=== PATIENT | male | born 1965 | race Caucasian/White ===

== ENCOUNTER → 2016-05-10 | Outpatient (CLI) | payer OTHER | LOC: MW.CHPS 10:46 | PROVIDERS: ATTEND Physician Assistant | DX: D22.9 Melanocytic nevi, unspecified (principal) | CPT/HCPCS: 88305 ==

== ENCOUNTER 2016-08-08 11:14 | Observation (INO) | payer OTHER ==
[2016-08-08] MEDS ORDERED: Nitroglycerin 0.4 MG Tab.SL SL PRN (11:17)
[2016-08-08] MEDS ORDERED: Sodium Chloride 0.9% 2.5 ML Syringe FLUSH PRN (11:17)
[2016-08-08] MEDS ORDERED: Aspirin 81 MG Tab.Chew PO ONE (11:17)
[2016-08-08] MEDS ORDERED: Sodium Chloride 0.9% 10 ML Syringe FLUSH PRN (11:17)
--- NOTE | 2016-08-08 11:19 | EDM.PDOC ---
ED HPI GENERAL MEDICAL PROBLEM - General Chief Complaint: Chest Pain Stated Complaint: CHEST PAIN Time Seen by Provider: 08/08/16 11:16 - History of Present Illness INITIAL COMMENTS - FREE TEXT/NARRATIVE: HISTORY AND PHYSICAL: History of present illness: Patient 50-year-old white male she is concerned substernal chest pain he describes as an elephant sitting on his chest with associated shortness of breath at the approximate half hour prior to arrival he is lying in bed he does smoke he does not report hypercholesteremia or diabetes he denies prior CVA or SC Review of systems: As per history of present illness and below otherwise all systems reviewed and negative. Past medical history: As per history of present illness and as reviewed below otherwise noncontributory. Surgical history: As per history of present illness and as reviewed below otherwise noncontributory. Social history: No reported history of drug or alcohol abuse. Family history: As per history of present illness and as reviewed below otherwise noncontributory. Physical exam: HEENT: Atraumatic, normocephalic, pupils reactive, negative for conjunctival pallor or scleral icterus, mucous membranes moist, throat clear, neck supple, nontender, trachea midline. Lungs: Clear to auscultation, breath sounds equal bilaterally, chest nontender. Heart: S1S2, regular, negative for clicks, rubs, or JVD. Abdomen: Soft, nondistended, nontender. Negative for masses or hepatosplenomegaly. Negative for costovertebral tenderness. Pelvis: Stable nontender. Genitourinary: Deferred. Rectal: Deferred. Extremities: Atraumatic, negative for cords or calf pain. Neurovascular unremarkable. Neuro: Awake, alert, oriented. Cranial nerves II through XII unremarkable. Cerebellum unremarkable. Motor and sensory unremarkable throughout. Exam nonfocal. Diagnostics: CBC CMP troponin PT/INR chest x-ray EKG Therapeutics: IV O2 monitor aspirin 324 mg by mouth sublingual nitroglycerin Impression: #1 chest pain Definitive disposition and diagnosis as appropriate pending reevaluation and review of above. - Related Data Allergies Allergy/AdvReac Type Severity Reaction Status Date / Time No Known Allergies Allergy Verified 08/08/16 11:18 Home Meds: Home Meds . [No Known Home Meds] 09/21/13 [History] Social & Family History - Tobacco Use Smoking Status *Q: Current Every Day Smoker Years of Tobacco use: 30 - Alcohol Use Days Per Week of Alcohol Use: 1 Number of Drinks Per Day: 2 Total Drinks Per Week: 2 - Recreational Drug Use Recreational Drug Use: No Drug Use in Last 12 Months: No ED ROS GENERAL - Review of Systems Review Of Systems: ROS reveals no pertinent complaints other than HPI. ED EXAM, GENERAL - Physical Exam Exam: See Below (See dictation) Course - Vital Signs Last Recorded V/S: Last Vital Signs Temp 36.6 C 08/08/16 11:18 Pulse 63 08/08/16 11:39 Resp 16 08/08/16 11:39 BP 115/67 08/08/16 11:39 Pulse Ox 95 08/08/16 11:39 - Orders/Labs/Meds Orders: Active Orders 24 hr Category Date Time Status Cardiac Monitoring [RC] . DIRECTED Care 08/08/16 11:16 Active EKG Documentation Completion [RC] STAT Care 08/08/16 11:16 Active Oxygen Therapy, ED [RC] ASDIRECTED Care 08/08/16 11:16 Active Pulse Oximetry [RC] ASDIRECTED Care 08/08/16 11:16 Active Sodium Chloride 0.9% [Normal Saline] 1,000 ml Med 08/08/16 11:30 Active IV STAT Sodium Chloride 0.9% [Saline Flush] Med 08/08/16 11:17 Active 10 ml FLUSH ASDIRECTED PRN Sodium Chloride 0.9% [Saline Flush] Med 08/08/16 11:17 Active 2.5 ml FLUSH ASDIRECTED PRN Saline Lock Insert [OM.PC] Stat Oth 08/08/16 11:16 Ordered Medication Orders Sodium Chloride (Normal Saline) 1,000 mls @ 125 mls/hr IV STAT LIDIA Last Admin: 08/08/16 11:24 Dose: 125 mls/hr Sodium Chloride (Saline Flush) 10 ml FLUSH ASDIRECTED PRN PRN Reason: Keep Vein Open Sodium Chloride (Saline Flush) 2.5 ml FLUSH ASDIRECTED PRN PRN Reason: Keep Vein Open Labs: Laboratory Tests 08/08/16 08/08/16 08/08/16 Range/Units 11:19 11:19 11:19 WBC 12.82 H (4.0-11.0) K/uL RBC 5.54 (4.50-5.90) M/uL Hgb 17.4 H (13.0-17.0) g/dL Hct 50.1 H (38.0-50.0) % MCV 90.4 (80.0-98.0) fL MCH 31.4 (27.0-32.0) pg MCHC 34.7 (31.0-37.0) g/dL RDW Std Deviation 46.8 (28.0-62.0) fl RDW Coeff of Trent 14 (11.0-15.0) % Plt Count 281 (150-400) K/uL MPV 10.40 (7.40-12.00) fL Neut % (Auto) 64.2 (48.0-80.0) % Lymph % (Auto) 29.2 (16.0-40.0) % Mccone % (Auto) 6.2 (0.0-15.0) % Eos % (Auto) 0.2 (0.0-7.0) % Baso % (Auto) 0.2 (0.0-1.5) % Neut # (Auto) 8.2 H (1.4-5.7) K/uL Lymph # (Auto) 3.7 H (0.6-2.4) K/uL Mccone # (Auto) 0.8 (0.0-0.8) K/uL Eos # (Auto) 0.0 (0.0-0.7) K/uL Baso # (Auto) 0.0 (0.0-0.1) K/uL Nucleated RBC % 0.0 /100WBC Nucleated RBCs # 0 K/uL INR (0.86-1.11) Sodium 139 (136-146) mmol/L Potassium 3.9 (3.5-5.1) mmol/L Chloride 105 (98-110) mmol/L Carbon Dioxide 21 (21-31) mmol/L BUN 15 (6.0-23.0) mg/dL Creatinine 1.0 (0.6-1.5) mg/dL Est Cr Clr Drug Dosing 96.98 mL/min Estimated GFR (MDRD) > 60.0 ml/min Glucose 102 (60-110) mg/dL Calcium 9.1 (8.8-10.8) mg/dL Total Bilirubin 0.7 (0.1-1.5) mg/dL AST 61 H (5-40) IU/L ALT 36 (8-54) IU/L Alkaline Phosphatase 90 (40-150) Troponin I (0.0-0.29) NG/ML B-Natriuretic Peptide < 15 (<100) PG/ML Total Protein 7.9 (6.0-8.0) g/dL Albumin 4.6 (3.5-5.0) g/dL Globulin 3.3 (2.0-3.5) g/dL Albumin/Globulin Ratio 1.4 (1.3-2.8) Urine Opiates Screen (NEGATIVE) Ur Oxycodone Screen (NEGATIVE) Urine Methadone Screen (NEGATIVE) Ur Barbiturates Screen (NEGATIVE) Ur Phencyclidine Scrn (NEGATIVE) Ur Amphetamine Screen (NEGATIVE) U Methamphetamines Scrn (NEGATIVE) U Benzodiazepines Scrn (NEGATIVE) U Cocaine Metab Screen (NEGATIVE) U Marijuana (THC) Screen (NEGATIVE) 08/08/16 08/08/16 08/08/16 Range/Units 11:19 11:19 12:34 WBC (4.0-11.0) K/uL RBC (4.50-5.90) M/uL Hgb (13.0-17.0) g/dL Hct (38.0-50.0) % MCV (80.0-98.0) fL MCH (27.0-32.0) pg MCHC (31.0-37.0) g/dL RDW Std Deviation (28.0-62.0) fl RDW Coeff of Trent (11.0-15.0) % Plt Count (150-400) K/uL MPV (7.40-12.00) fL Neut % (Auto) (48.0-80.0) % Lymph % (Auto) (16.0-40.0) % Mccone % (Auto) (0.0-15.0) % Eos % (Auto) (0.0-7.0) % Baso % (Auto) (0.0-1.5) % Neut # (Auto) (1.4-5.7) K/uL Lymph # (Auto) (0.6-2.4) K/uL M[place]one # (Auto) (0.0-0.8) K/uL Eos # (Auto) (0.0-0.7) K/uL Baso # (Auto) (0.0-0.1) K/uL Nucleated RBC % /100WBC Nucleated RBCs # K/uL INR 0.96 (0.86-1.11) Sodium (136-146) mmol/L Potassium (3.5-5.1) mmol/L Chloride (98-110) mmol/L Carbon Dioxide (21-31) mmol/L BUN (6.0-23.0) mg/dL Creatinine (0.6-1.5) mg/dL Est Cr Clr Drug Dosing mL/min Estimated GFR (MDRD) ml/min Glucose (60-110) mg/dL Calcium (8.8-10.8) mg/dL Total Bilirubin (0.1-1.5) mg/dL AST (5-40) IU/L ALT (8-54) IU/L Alkaline Phosphatase (40-150) Troponin I < 0.10 (0.0-0.29) NG/ML B-Natriuretic Peptide (<100) PG/ML Total Protein (6.0-8.0) g/dL Albumin (3.5-5.0) g/dL Globulin (2.0-3.5) g/dL Albumin/Globulin Ratio (1.3-2.8) Urine Opiates Screen POSITIVE (NEGATIVE) Ur Oxycodone Screen NEGATIVE (NEGATIVE) Urine Methadone Screen NEGATIVE (NEGATIVE) Ur Barbiturates Screen NEGATIVE (NEGATIVE) Ur Phencyclidine Scrn NEGATIVE (NEGATIVE) Ur Amphetamine Screen NEGATIVE (NEGATIVE) U Methamphetamines Scrn NEGATIVE (NEGATIVE) U Benzodiazepines Scrn NEGATIVE (NEGATIVE) U Cocaine Metab Screen NEGATIVE (NEGATIVE) U Marijuana (THC) Screen NEGATIVE (NEGATIVE) Meds: Medications Generic Name Dose Route Start Last Admin Trade Name Freq PRN Reason Stop Dose Admin Sodium Chloride 1,000 mls @ 125 mls/hr 08/08/16 11:30 08/08/16 11:24 Normal Saline IV 125 mls/hr STAT LIDIA Administration Sodium Chloride 10 ml 08/08/16 11:17 Saline Flush FLUSH ASDIRECTED PRN Keep Vein Open Sodium Chloride 2.5 ml 08/08/16 11:17 Saline Flush FLUSH ASDIRECTED PRN Keep Vein Open Discontinued Medications Generic Name Dose Route Start Last Admin Trade Name Freq PRN Reason Stop Dose Admin Aspirin 324 mg 08/08/16 11:17 08/08/16 11:23 Aspirin PO 08/08/16 11:18 324 mg ONETIME ONE Administration Aspirin Confirm 08/08/16 11:31 08/08/16 11:36 Aspirin Administered 08/08/16 11:32 Not Given Dose 81 mg .ROUTE .STK-MED ONE Nitroglycerin 0.4 mg 08/08/16 11:17 08/08/16 11:24 Nitrostat SL 08/08/16 11:28 0.4 mg Q5M PRN Administration Chest Pain Nitroglycerin 1 gm 08/08/16 13:19 Nitro-Bid 2% TOP 08/08/16 13:20 ONETIME ONE Departure - Departure Time of Disposition: 13:21 Disposition: Refer to Observation Condition: good Clinical Impression: Chest pain - Discharge Information Forms: ED Department Discharge - My Orders Last 24 Hours: My Active Orders 08/08/16 11:16 Cardiac Monitoring [RC] . DIRECTED EKG Documentation Completion [RC] STAT Oxygen Therapy, ED [RC] ASDIRECTED Pulse Oximetry [RC] ASDIRECTED Saline Lock Insert [OM.PC] Stat 08/08/16 11:17 Sodium Chloride 0.9% [Saline Flush] 10 ml FLUSH ASDIRECTED PRN Sodium Chloride 0.9% [Saline Flush] 2.5 ml FLUSH ASDIRECTED PRN 08/08/16 11:30 Sodium Chloride 0.9% [Normal Saline] 1,000 ml IV STAT - Assessment/Plan Last 24 Hours: My Active Orders 08/08/16 11:16 Cardiac Monitoring [RC] . DIRECTED EKG Documentation Completion [RC] STAT Oxygen Therapy, ED [RC] ASDIRECTED Pulse Oximetry [RC] ASDIRECTED Saline Lock Insert [OM.PC] Stat 08/08/16 11:17 Sodium Chloride 0.9% [Saline Flush] 10 ml FLUSH ASDIRECTED PRN Sodium Chloride 0.9% [Saline Flush] 2.5 ml FLUSH ASDIRECTED PRN 08/08/16 11:30 Sodium Chloride 0.9% [Normal Saline] 1,000 ml IV STAT
[2016-08-08] MEDS ORDERED: Sodium Chloride 0.9% 1,000 ML IV SCH (11:30)
[2016-08-08] MEDS ORDERED: Aspirin 81 MG Tab.Chew ONE (11:31)
[2016-08-08 11:50] LABS: CHLORIDE,CL 105 mmol/L (98-110); SODIUM,NA 139 mmol/L (136-146)
--- NOTE | 2016-08-08 11:51 | CR ---
EXAMINATION: Portable chest radiograph. HISTORY: Shortness of breath. FINDINGS: The trachea is midline. The cardiomediastinal silhouette is within normal limits. No pulmonary infil trates, effusions or pneumothorax. Osseous structures appear unremarkable. IMPRESSION: No acute cardiopulmonary process.
[2016-08-08] MEDS ORDERED: Nitroglycerin 2% Oint 1 GM UD Packet TOP ONE (13:19)
[2016-08-08] MEDS ORDERED: Ondansetron 8 MG Tab.DIS PO PRN (14:03)
[2016-08-08] MEDS ORDERED: Temazepam 15 MG Cap PO PRN (14:03)
[2016-08-08] MEDS ORDERED: Acetaminophen 325 MG Tab PO PRN (14:03)
[2016-08-08] MEDS ORDERED: oxyCODONE 5 MG Tab PO PRN (14:03)
[2016-08-08] MEDS ORDERED: Docusate Sodium 100 MG Cap PO PRN (14:03)
--- NOTE | 2016-08-08 14:53 | PCM.HP ---
H&P History of Present Illness - General Date of Service: 08/08/16 Admit Problem/Dx: Admission Diagnosis/Problem Admission Diagnosis/Problem Chest pain atypical chest pain Source of Information: Patient, Family History Limitations: Reports: No Limitations - History of Present Illness Initial Comments - Free Text/Narative: August 08, 2016: The patient is a 50-year-old gentleman who is presented to the emergency department out of concern for substernal chest pain. Patient had described it as a crushing type weight like an elephant on his chest. Patient also had some shortness of breath with this. Patient says that he was not doing anything physical but the pain had started essentially without aggravation. Other than shortness of breath the patient had no specific associated symptoms. The patient says that the pain did not radiate. He is not in any pain at present time. The patient uses tobacco on a daily basis. The patient has stated that the pain has been relieved with the use of nitroglycerin patch. He also has denied any specific aggravating or relieving factors. Onset of Symptoms: Reports: Sudden Duration of Symptoms: Reports: Hour(s):, Improving Location: Reports: Chest, Upper Extremity, Left Quality: Reports: Pressure, Sharp, Stabbing Improves with: Reports: Medication Worsens with: Reports: None Associated Symptoms: Reports: Nausea/Vomiting chest pain Pain Score (Numeric/FACES): 5 - Related Data Allergies/Adverse Reactions: Allergies Allergy/AdvReac Type Severity Reaction Status Date / Time No Known Allergies Allergy Verified 08/08/16 11:18 Home Medications: Home Meds . [No Known Home Meds] 09/21/13 [History] Past Medical History HEENT History: Reports: None Cardiovascular History: Reports: None Respiratory History: Reports: None Gastrointestinal History: Reports: GERD Genitourinary History: Reports: None Musculoskeletal History: Reports: None Neurological History: Reports: None Psychiatric History: Reports: None Endocrine/Metabolic History: Reports: None Hematologic History: Reports: None Oncologic (Cancer) History: Reports: None Dermatologic History: Reports: None - Past Surgical History GI Surgical History: Reports: Cholecystectomy Musculoskeletal Surgical History: Reports: Other (See Below) Other Musculoskeletal Surgeries/Procedures:: hip surgery, knee surgery, rib fx Social & Family History - Family History Family Medical History: Noncontributory - Tobacco Use Smoking Status *Q: Current Every Day Smoker Years of Tobacco use: 30 Packs/Tins Daily: 1 - Alcohol Use Alcohol Use History: Yes Days Per Week of Alcohol Use: 7 Number of Drinks Per Day: 2 Total Drinks Per Week: 14 Alcohol Use Frequency: Daily - Recreational Drug Use Recreational Drug Use: No Drug Use in Last 12 Months: No H&P Review of Systems - Review of Systems: Review Of Systems: See Below General: Reports: Weakness HEENT: Reports: No Symptoms Pulmonary: Reports: Shortness of Breath Cardiovascular: Reports: Chest Pain, Dyspnea on Exertion Gastrointestinal: Reports: No Symptoms Genitourinary: Reports: No Symptoms Musculoskeletal: Reports: No Symptoms Skin: Reports: No Symptoms Psychiatric: Reports: No Symptoms Neurological: Reports: No Symptoms Hematologic/Lymphatic: Reports: No Symptoms Immunologic: Reports: No Symptoms Exam - Exam Exam: See Below - Vital Signs Vital Signs: Last Vital Signs Temp 36.6 C 08/08/16 11:18 Pulse 55 L 08/08/16 14:08 Resp 18 08/08/16 14:08 BP 134/97 H 08/08/16 14:08 Pulse Ox 98 08/08/16 14:08 Weight: 75.9 kg - Exam Quality Assessment: Supplemental Oxygen General: Alert, Oriented, Cooperative. No: Mild Distress HEENT: Conjunctiva Clear, EACs Clear, EOMI, Hearing Intact, Mucosa Moist & [place] , Nares Patent Neck: Supple, Trachea Midline, 2 Lungs: Clear to Auscultation, Normal Respiratory Effort Cardiovascular: Regular Rate, Regular Rhythm Abdomen: Normal Bowel Sounds, Soft. No: Peritoneal Signs, Distention Back Exam: Normal Inspection Extremities: Normal Inspection Skin: Warm, Dry, Intact Neurological: Cranial Nerves Intact Neuro Extensive - Mental Status: Alert, Oriented x3 Psychiatric: Alert, Normal Affect, Normal Mood - Patient Data Lab Results last 24 hrs: Laboratory Results - last 24 hr 08/08/16 08/08/16 08/08/16 Range/Units 11:19 11:19 11:19 WBC 12.82 H (4.0-11.0) K/uL RBC 5.54 (4.50-5.90) M/uL Hgb 17.4 H (13.0-17.0) g/dL Hct 50.1 H (38.0-50.0) % MCV 90.4 (80.0-98.0) fL MCH 31.4 (27.0-32.0) pg MCHC 34.7 (31.0-37.0) g/dL RDW Std Deviation 46.8 (28.0-62.0) fl RDW Coeff of Trent 14 (11.0-15.0) % Plt Count 281 (150-400) K/uL MPV 10.40 (7.40-12.00) fL Neut % (Auto) 64.2 (48.0-80.0) % Lymph % (Auto) 29.2 (16.0-40.0) % [place]ay % (Auto) 6.2 (0.0-15.0) % Eos % (Auto) 0.2 (0.0-7.0) % Baso % (Auto) 0.2 (0.0-1.5) % Neut # (Auto) 8.2 H (1.4-5.7) K/uL Lymph # (Auto) 3.7 H (0.6-2.4) K/uL [place]ay # (Auto) 0.8 (0.0-0.8) K/uL Eos # (Auto) 0.0 (0.0-0.7) K/uL Baso # (Auto) 0.0 (0.0-0.1) K/uL Nucleated RBC % 0.0 /100WBC Nucleated RBCs # 0 K/uL INR (0.86-1.11) Sodium 139 (136-146) mmol/L Potassium 3.9 (3.5-5.1) mmol/L Chloride 105 (98-110) mmol/L Carbon Dioxide 21 (21-31) mmol/L BUN 15 (6.0-23.0) mg/dL Creatinine 1.0 (0.6-1.5) mg/dL Est Cr Clr Drug Dosing 96.98 mL/min Estimated GFR (MDRD) > 60.0 ml/min Glucose 102 (60-110) mg/dL Calcium 9.1 (8.8-10.8) mg/dL Total Bilirubin 0.7 (0.1-1.5) mg/dL AST 61 H (5-40) IU/L ALT 36 (8-54) IU/L Alkaline Phosphatase 90 (40-150) Troponin I (0.0-0.29) NG/ML B-Natriuretic Peptide < 15 (<100) PG/ML Total Protein 7.9 (6.0-8.0) g/dL Albumin 4.6 (3.5-5.0) g/dL Globulin 3.3 (2.0-3.5) g/dL Albumin/Globulin Ratio 1.4 (1.3-2.8) Urine Opiates Screen (NEGATIVE) Ur Oxycodone Screen (NEGATIVE) Urine Methadone Screen (NEGATIVE) Ur Barbiturates Screen (NEGATIVE) Ur Phencyclidine Scrn (NEGATIVE) Ur Amphetamine Screen (NEGATIVE) U Methamphetamines Scrn (NEGATIVE) U Benzodiazepines Scrn (NEGATIVE) U Cocaine Metab Screen (NEGATIVE) U Marijuana (THC) Screen (NEGATIVE) 08/08/16 08/08/16 08/08/16 Range/Units 11:19 11:19 12:34 WBC (4.0-11.0) K/uL RBC (4.50-5.90) M/uL Hgb (13.0-17.0) g/dL Hct (38.0-50.0) % MCV (80.0-98.0) fL MCH (27.0-32.0) pg MCHC (31.0-37.0) g/dL RDW Std Deviation (28.0-62.0) fl RDW Coeff of Trent (11.0-15.0) % Plt Count (150-400) K/uL MPV (7.40-12.00) fL Neut % (Auto) (48.0-80.0) % Lymph % (Auto) (16.0-40.0) % Quay % (Auto) (0.0-15.0) % Eos % (Auto) (0.0-7.0) % Baso % (Auto) (0.0-1.5) % Neut # (Auto) (1.4-5.7) K/uL Lymph # (Auto) (0.6-2.4) K/uL Quay # (Auto) (0.0-0.8) K/uL Eos # (Auto) (0.0-0.7) K/uL Baso # (Auto) (0.0-0.1) K/uL Nucleated RBC % /100WBC Nucleated RBCs # K/uL INR 0.96 (0.86-1.11) Sodium (136-146) mmol/L Potassium (3.5-5.1) mmol/L Chloride (98-110) mmol/L Carbon Dioxide (21-31) mmol/L BUN (6.0-23.0) mg/dL Creatinine (0.6-1.5) mg/dL Est Cr Clr Drug Dosing mL/min Estimated GFR (MDRD) ml/min Glucose (60-110) mg/dL Calcium (8.8-10.8) mg/dL Total Bilirubin (0.1-1.5) mg/dL AST (5-40) IU/L ALT (8-54) IU/L Alkaline Phosphatase (40-150) Troponin I < 0.10 (0.0-0.29) NG/ML B-Natriuretic Peptide (<100) PG/ML Total Protein (6.0-8.0) g/dL Albumin (3.5-5.0) g/dL Globulin (2.0-3.5) g/dL Albumin/Globulin Ratio (1.3-2.8) Urine Opiates Screen POSITIVE (NEGATIVE) Ur Oxycodone Screen NEGATIVE (NEGATIVE) Urine Methadone Screen NEGATIVE (NEGATIVE) Ur Barbiturates Screen NEGATIVE (NEGATIVE) Ur Phencyclidine Scrn NEGATIVE (NEGATIVE) Ur Amphetamine Screen NEGATIVE (NEGATIVE) U Methamphetamines Scrn NEGATIVE (NEGATIVE) U Benzodiazepines Scrn NEGATIVE (NEGATIVE) U Cocaine Metab Screen NEGATIVE (NEGATIVE) U Marijuana (THC) Screen NEGATIVE (NEGATIVE) Result Diagrams: 08/09/16 09:13 08/09/16 09:13 *Q Meaningful Use (ADM) - VTE *Q VTE Criteria *Q: - Stroke *Q Stroke Criteria *Q: - AMI *Q AMI Criteria *Q: - Problem List (1) Chest pain SNOMED Code(s): 11031916 ICD Code: R07.9 - CHEST PAIN, UNSPECIFIED Status: Acute Qualifiers: Chest pain type: other chest pain Qualified Code(s): R07.89 - Other chest pain; R07.8 - Other chest pain Problem List Initiated/Reviewed/Updated: Yes Orders Last 24hrs: Active Orders 24 hr Category Date Time Status Patient Status [ADT] Routine ADT 08/08/16 14:03 Active Ambulate [RC] PER UNIT ROUTINE Care 08/08/16 14:04 Active Cardiac Monitoring [RC] . DIRECTED Care 08/08/16 11:16 Active EKG Documentation Completion [RC] AM Care 08/09/16 08:00 Active EKG Documentation Completion [RC] STAT Care 08/08/16 11:16 Active Oxygen Therapy [RC] PRN Care 08/08/16 14:03 Active Oxygen Therapy, ED [RC] ASDIRECTED Care 08/08/16 11:16 Active Pulse Oximetry [RC] ASDIRECTED Care 08/08/16 11:16 Active Up ad Ayanna [RC] ASDIRECTED Care 08/08/16 14:03 Active VTE/DVT Education [RC] PER UNIT ROUTINE Care 08/08/16 14:03 Active Vital Signs [RC] Q4H Care 08/08/16 14:03 Active 2 Gram Sodium Diet [DIET] Diet 08/08/16 Dinner Active TROPONIN I [CHEM] Timed Lab 08/08/16 19:03 Ordered Acetaminophen [Tylenol] Med 08/08/16 14:03 Active 650 mg PO Q4H PRN Docusate Sodium [Colace] Med 08/08/16 14:03 Active 100 mg PO BID PRN Ondansetron [Zofran ODT] Med 08/08/16 14:03 Active 8 mg PO Q4H PRN Sodium Chloride 0.9% [Normal Saline] 1,000 ml Med 08/08/16 11:30 Active IV STAT Sodium Chloride 0.9% [Saline Flush] Med 08/08/16 11:17 Active 10 ml FLUSH ASDIRECTED PRN Sodium Chloride 0.9% [Saline Flush] Med 08/08/16 11:17 Active 2.5 ml FLUSH ASDIRECTED PRN Temazepam [Restoril] Med 08/08/16 14:03 Active 15 mg PO BEDTIME PRN oxyCODONE Med 08/08/16 14:03 Active 5 mg PO Q4H PRN Saline Lock Insert [OM.PC] Stat Oth 08/08/16 11:16 Ordered Resuscitation Status Routine Resus Stat 08/08/16 14:03 Ordered Medication Orders Acetaminophen (Tylenol) 650 mg PO Q4H PRN PRN Reason: Pain (Mild 1-3)/fever Docusate Sodium (Colace) 100 mg PO BID PRN PRN Reason: Constipation Sodium Chloride (Normal Saline) 1,000 mls @ 125 mls/hr IV STAT [facility] Admin: 08/08/16 11:24 Dose: 125 mls/hr Ondansetron HCl (Zofran Odt) 8 mg PO Q4H PRN PRN Reason: nausea, able to take PO Oxycodone HCl (Oxycodone) 5 mg PO Q4H PRN PRN Reason: Pain (moderate 4-6) Sodium Chloride (Saline Flush) 10 ml FLUSH ASDIRECTED PRN PRN Reason: Keep Vein Open Sodium Chloride (Saline Flush) 2.5 ml FLUSH ASDIRECTED PRN PRN Reason: Keep Vein Open Temazepam (Restoril) 15 mg PO BEDTIME PRN PRN Reason: Sleep Assessment/Plan Comment:: August 08, 2016: The patient is a 50-year-old gentleman who will be admitted for observation secondary to his chest pain. Troponins have been ordered. The patient also have EKG obtained and likely when he is stable he can be considered appropriate for discharge home. Because of the patient's description I would recommend that the patient followup with primary care physician for stress test as an outpatient. The patient will be kept on a heart healthy diet, IV fluids, nitro paste for chest pain, telemetry and repeated troponins and metabolic panel. The patient's overall treatment plan will be adjusted as conditions and information indicates.
[2016-08-08] MEDS ORDERED: Alum Hydrox/Mag Hydrox/Simeth 15 ML, Lidocaine 2% 5 ML PO ONE ×2 (19:19)
--- NOTE | 2016-08-09 09:38 | PCM.PN ---
- General Info Date of Service: 08/09/16 Admission Dx/Problem (Free Text): Admission Diagnosis/Problem Admission Diagnosis/Problem Chest pain atypical chest pain Subjective Update: Patient describes his pain as epigastric and in ruq radiating towards his back. Pain was continuous and lasted for 1 hour. He describes pain as if an elephant was sitting on his chest. Pain started while he was lying in bed in the morning. He drinks 3-6 beers daily. He smokes 1 ppd. Pain recurred once since admission and he was given nitro paste which resolved his pain. Patient also states that he has recently had a cough and had one episode of hemoptysis day before admission. He went to walk-in clinic and was told he had sinusitis for which he was prescribed augmentin and steroids but he has not taken either yet. Functional Status: Reports: pain controlled, tolerating diet, ambulating, urinating - Review of Systems General: Reports: No Symptoms HEENT: Reports: no symptoms Pulmonary: Reports: no symptoms Cardiovascular: Reports: Chest Pain. Denies: Palpitations, Dyspnea on Exertion , Edema, Lightheadedness Gastrointestinal: Reports: Abdominal pain, Other (epigastric/ruq pain). Denies : Decreased appetite, Diarrhea, Melena, Nausea, Vomiting Genitourinary: Reports: no symptoms Musculoskeletal: Reports: no symptoms Skin: Reports: no symptoms Neurological: Reports: No Symptoms Psychiatric: Reports: no symptoms - Patient Data Vitals - most recent: Last Vital Signs Temp 36.6 C 08/09/16 07:48 Pulse 57 L 08/09/16 07:48 Resp 20 08/09/16 07:48 BP 104/71 08/09/16 07:48 Pulse Ox 97 08/09/16 07:48 Weight - most recent: 76.566 kg I&O - last 24 hours: Intake & Output 08/08/16 08/09/16 08/09/16 22:59 06:59 14:59 Intake Total 120 300 Output Total 500 Balance -380 300 Lab Results last 24 hrs: Laboratory Results - last 24 hr 08/08/16 08/08/16 08/08/16 Range/Units 15:30 17:06 22:48 WBC (4.0-11.0) K/uL RBC (4.50-5.90) M/uL Hgb (13.0-17.0) g/dL Hct (38.0-50.0) % MCV (80.0-98.0) fL MCH (27.0-32.0) pg MCHC (31.0-37.0) g/dL RDW Std Deviation (28.0-62.0) fl RDW Coeff of Trent (11.0-15.0) % Plt Count (150-400) K/uL MPV (7.40-12.00) fL Neut % (Auto) (48.0-80.0) % Lymph % (Auto) (16.0-40.0) % [place] % (Auto) (0.0-15.0) % Eos % (Auto) (0.0-7.0) % Baso % (Auto) (0.0-1.5) % Neut # (Auto) (1.4-5.7) K/uL Lymph # (Auto) (0.6-2.4) K/uL [place] # (Auto) (0.0-0.8) K/uL Eos # (Auto) (0.0-0.7) K/uL Baso # (Auto) (0.0-0.1) K/uL Nucleated RBC % /100WBC Nucleated RBCs # K/uL Troponin I < 0.10 < 0.10 (0.0-0.29) NG/ML Urine Color YELLOW Urine Appearance CLEAR Urine pH 5.5 (5.0-8.0) Ur Specific [place] <= 1.005 (1.001-1.035) Urine Protein NEGATIVE (NEGATIVE) mg/dL Urine Glucose (UA) NEGATIVE (NEGATIVE) mg/dL Urine Ketones NEGATIVE (NEGATIVE) mg/dL Urine Occult Blood NEGATIVE (NEGATIVE) Urine Nitrite NEGATIVE (NEGATIVE) Urine Bilirubin NEGATIVE (NEGATIVE) Urine Urobilinogen 0.2 (<2.0) EU/dL Ur Leukocyte Esterase NEGATIVE (NEGATIVE) Urine RBC 0-1 (0-2/HPF) Urine WBC 0-1 (0-5/HPF) Ur Epithelial Cells RARE (NONE-FEW) Urine Bacteria RARE (NEGATIVE) 08/09/16 Range/Units 09:13 WBC 10.55 (4.0-11.0) K/uL RBC 5.02 (4.50-5.90) M/uL Hgb 15.6 (13.0-17.0) g/dL Hct 45.6 (38.0-50.0) % MCV 90.8 (80.0-98.0) fL MCH 31.1 (27.0-32.0) pg MCHC 34.2 (31.0-37.0) g/dL RDW Std Deviation 48.1 (28.0-62.0) fl RDW Coeff of [place] 14 (11.0-15.0) % Plt Count 217 (150-400) K/uL MPV 10.00 (7.40-12.00) fL Neut % (Auto) 70.6 (48.0-80.0) % Lymph % (Auto) 19.0 (16.0-40.0) % [place] % (Auto) 8.6 (0.0-15.0) % Eos % (Auto) 1.6 (0.0-7.0) % Baso % (Auto) 0.2 (0.0-1.5) % Neut # (Auto) 7.5 H (1.4-5.7) K/uL Lymph # (Auto) 2.0 (0.6-2.4) K/uL [place] # (Auto) 0.9 H (0.0-0.8) K/uL Eos # (Auto) 0.2 (0.0-0.7) K/uL Baso # (Auto) 0.0 (0.0-0.1) K/uL Nucleated RBC % 0.0 /100WBC Nucleated RBCs # 0 K/uL Troponin I (0.0-0.29) NG/ML Urine Color Urine Appearance Urine pH (5.0-8.0) Ur Specific [place] (1.001-1.035) Urine Protein (NEGATIVE) mg/dL Urine Glucose (UA) (NEGATIVE) mg/dL Urine Ketones (NEGATIVE) mg/dL Urine Occult Blood (NEGATIVE) Urine Nitrite (NEGATIVE) Urine Bilirubin (NEGATIVE) Urine Urobilinogen (<2.0) EU/dL Ur Leukocyte Esterase (NEGATIVE) Urine RBC (0-2/HPF) Urine WBC (0-5/HPF) Ur Epithelial Cells (NONE-FEW) Urine Bacteria (NEGATIVE) Med Orders - Current: Current Medications Acetaminophen (Tylenol) 650 mg PO Q4H PRN PRN Reason: Pain (Mild 1-3)/fever Docusate Sodium (Colace) 100 mg PO BID PRN PRN Reason: Constipation Ondansetron HCl (Zofran Odt) 8 mg PO Q4H PRN PRN Reason: nausea, able to take PO Oxycodone HCl (Oxycodone) 5 mg PO Q4H PRN PRN Reason: Pain (moderate 4-6) Sodium Chloride (Saline Flush) 10 ml FLUSH ASDIRECTED PRN PRN Reason: Keep Vein Open Sodium Chloride (Saline Flush) 2.5 ml FLUSH ASDIRECTED PRN PRN Reason: Keep Vein Open Temazepam (Restoril) 15 mg PO BEDTIME PRN PRN Reason: Sleep Discontinued Medications Aspirin (Aspirin) 324 mg PO ONETIME ONE Stop: 08/08/16 11:18 Last Admin: 08/08/16 11:23 Dose: 324 mg Aspirin (Aspirin) Confirm Administered Dose 81 mg .ROUTE .STK-MED ONE Stop: 08/08/16 11:32 Last Admin: 08/08/16 11:36 Dose: Not Given Al Hydroxide/Mg Hydroxide 15 (ml/ Lidocaine HCl 5 ml) 0 ml PO ONETIME ONE Stop: 08/08/16 19:20 Last Admin: 08/08/16 20:12 Dose: 1 each Sodium Chloride (Normal Saline) 1,000 mls @ 125 mls/hr IV STAT LIDIA Last Admin: 08/08/16 11:24 Dose: 125 mls/hr Nitroglycerin (Nitrostat) 0.4 mg SL Q5M PRN PRN Reason: Chest Pain Stop: 08/08/16 11:28 Last Admin: 08/08/16 11:24 Dose: 0.4 mg Nitroglycerin (Nitro-Bid 2%) 1 gm TOP ONETIME ONE Stop: 08/08/16 13:20 Last Admin: 08/08/16 13:23 Dose: 1 gm - Exam General: alert, oriented, no acute distress HEENT: Pupils equal, Pupils reactive, EOMI Neck: supple, no JVD Lungs: Clear to auscultation, Normal respiratory effort Cardiovascular: Regular Rate, Regular Rhythm Abdomen: CVA tenderness, other (RUQ tenderness, all other regions nontender) Extremities: no edema Skin: warm, dry, intact Neurological: no new focal deficit Psy/Mental Status: alert, normal affect, normal mood - Problem List Review Problem List Initiated/Reviewed/Updated: Yes - My Orders Last 24 Hours: My Active Orders 08/09/16 08:58 Abdomen wo Cont [CT] Routine 08/09/16 09:03 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 Chest Pain/Epigastric Pain -vitals stable, NSR on admission EKG, Troponin x3 negative, Telemetry NSR 60-80 , CXR on admission shows no acute changes -no history of HTN, hypercholesterolemia or DM -patient claims to have had normal stress test 1 year ago -patient admits to drinking 3-6 beers daily, smokes 1 ppd -Leukocytosis on admission, may be from recent sinusitis infection 2. Alcohol Use Disorder -patient drinks 3-6 beers daily -no symptoms of withdrawal 3. Acute Sinusitis -patient has had ongoing cough for 2 weeks -diagnosed 2 days ago at walk-in clinic -patient was prescribed augmentin and steroids but he has not started either yet Plan: 1. DC telemety 2. order CBC/CMP/Amylase/Lipase/CRP 3. CT abdomen-pelvis wo contrast 4. consider DC home if no abnormalities 5. as per orders
[2016-08-09 09:49] LABS: CHLORIDE,CL 107 mmol/L (98-110); SODIUM,NA 140 mmol/L (136-146)
--- NOTE | 2016-08-09 11:15 | CT ---
EXAM DATE: 08/08/16 PATIENT'S AGE: 50 Patient: ALTHEA BALL Facility: [place], [place] Site . Site : [id number] Study: CT Abdomen/Pelvis [id number]/1/2017 9:58:31 AM Ordering Physician: Tonya Concepcion Final Report: INDICATION: Right upper quadrant pain. Epigastric pain. Chest pain. Technique: CT abdomen and pelvis performed without oral contrast. Findings: Cholecystectomy. Moderate patchy atherosclerotic calcification. Surgical clip left pelvis. Ill-defined sclerotic lesion right supra-acetabular iliac bone measures 2.1 cm. This is larger than typically seen for a bone island and therefore suggest comparison with any available previous CT exams or correlation to bone scan to determine if this has any metabolic activity. Cystic lucent lesion left proximal femur benign. Mild atelectasis in the lung bases some which is platelike. Colonic diverticulosis. Appendix normal. Remainder negative. Impression: 1. No acute disease in abdomen or pelvis. 2. 2.1 cm ill-defined indeterminate sclerotic lesion involving the right iliac bone is larger than typically seen for a bone island. Consider correlation with bone scan and/or comparison with any available previous CT. 3. Cholecystectomy without biliary dilatation. 4. Colonic diverticulosis. Other findings as above. Please note that all CT scans at this facility use dose modulation, iterative reconstruction, and/or weight-based dosing when appropriate to reduce radiation dose to as low as reasonably achievable. Dictated by Chu Simmons MD @ Aug 09 2016 10:09AM (Electronic Signature) Report Signed by Proxy. MIGDALIA
[2016-08-09 11:54] VITALS: BP 119/76
--- NOTE | 2016-08-09 12:22 | PCM.DCSUM1 ---
[id number]/Narrative:: 50 yo male with history of alcohol use disorder was admitted for chest pain/ epigastric with BL radiation to his back. He described it as "elephant lying on his chest." The pain occurred at rest. His pain persisted for 1 hour until he arrived to ED where it was resolved with Nitroglycerin. Pain recurred shortly after while he was in the ED and responded to nitroglycerin. His vitals were stable, EKG was normal and Troponin was negative. His white count was slightly elevated at 12k but he has been ill for 2 weeks and was diagnosed with sinusitis at a walk-in clinic 2 days ago. While on the floor he did well and pain did not recur. Overnight telemetry was NSR. CBC/CMP/CRP/Amylase/Lipase were normal. CT abdomen-pelvis without contrast was and showed diverticulosis with no other acute disease in abdomen or pelvis. Sclerotic lesion was seen in right iliac bone but records reveal that this has been investigated in the past. Patient was discharged home on 08/09. He will have follow-up scheduled with PCP Dr. Loera within 2 weeks on 08/16 at 0830. We recommended stress test and offered ordering it but he stated he will see his PCP and schedule through him at [place]. - Discharge Data Discharge Date: 08/09/16 Discharge Disposition: Home, Self-Care 01 Condition: Good - Patient Instructions Diet: Usual Diet as Tolerated, No Alcoholic Beverages Activity: As Tolerated Notify Provider of: Fever, Increased Pain, Swelling and Redness, Drainage, Nausea and/or Vomiting - Discharge Plan Home Medications: Home Meds . [No Known Home Meds] 09/21/13 [History] Patient Handouts: Nonspecific Chest Pain, [id number] Referrals: Andrew Loera MD [Primary Care Provider] - 08/16/16 8:30 am - Discharge Summary/Plan Comment DC Time >30 min.: No Discharge Summary/Plan Comment: Discuss stress test with PCP - Patient Data Vitals - Most Recent: Last Vital Signs Temp 36.4 C 08/09/16 11:53 Pulse 73 08/09/16 11:53 Resp 22 H 08/09/16 11:53 BP 119/76 08/09/16 11:53 Pulse Ox 96 08/09/16 11:53 Weight - Most Recent: 76.566 kg I&O - Last 24 hours: Intake & Output 08/08/16 08/09/16 08/09/16 22:59 06:59 14:59 Intake Total 120 300 Output Total 500 Balance -380 300 Lab Results - Last 24 hrs: Laboratory Results - last 24 hr 08/08/16 08/08/16 08/08/16 Range/Units 15:30 17:06 22:48 WBC (4.0-11.0) K/uL RBC (4.50-5.90) M/uL Hgb (13.0-17.0) g/dL Hct (38.0-50.0) % MCV (80.0-98.0) fL MCH (27.0-32.0) pg MCHC (31.0-37.0) g/dL RDW Std Deviation (28.0-62.0) fl RDW Coeff of Trent (11.0-15.0) % Plt Count (150-400) K/uL MPV (7.40-12.00) fL Neut % (Auto) (48.0-80.0) % Lymph % (Auto) (16.0-40.0) % [place] % (Auto) (0.0-15.0) % Eos % (Auto) (0.0-7.0) % Baso % (Auto) (0.0-1.5) % Neut # (Auto) (1.4-5.7) K/uL Lymph # (Auto) (0.6-2.4) K/uL [place] # (Auto) (0.0-0.8) K/uL Eos # (Auto) (0.0-0.7) K/uL Baso # (Auto) (0.0-0.1) K/uL Nucleated RBC % /100WBC Nucleated RBCs # K/uL Sodium (136-146) mmol/L Potassium (3.5-5.1) mmol/L Chloride (98-110) mmol/L Carbon Dioxide (21-31) mmol/L BUN (6.0-23.0) mg/dL Creatinine (0.6-1.5) mg/dL Est Cr Clr Drug Dosing mL/min Estimated GFR (MDRD) ml/min Glucose (60-110) mg/dL Calcium (8.8-10.8) mg/dL Total Bilirubin (0.1-1.5) mg/dL AST (5-40) IU/L ALT (8-54) IU/L Alkaline Phosphatase (40-150) Troponin I < 0.10 < 0.10 (0.0-0.29) NG/ML C-Reactive Protein (0.0-0.5) mg/dL Total Protein (6.0-8.0) g/dL Albumin (3.5-5.0) g/dL Globulin (2.0-3.5) g/dL Albumin/Globulin Ratio (1.3-2.8) Amylase (10-90) U/L Lipase (7-80) U/L Urine Color YELLOW Urine Appearance CLEAR Urine pH 5.5 (5.0-8.0) Ur Specific [place] <= 1.005 (1.001-1.035) Urine Protein NEGATIVE (NEGATIVE) mg/dL Urine Glucose (UA) NEGATIVE (NEGATIVE) mg/dL Urine Ketones NEGATIVE (NEGATIVE) mg/dL Urine Occult Blood NEGATIVE (NEGATIVE) Urine Nitrite NEGATIVE (NEGATIVE) Urine Bilirubin NEGATIVE (NEGATIVE) Urine Urobilinogen 0.2 (<2.0) EU/dL Ur Leukocyte Esterase NEGATIVE (NEGATIVE) Urine RBC 0-1 (0-2/HPF) Urine WBC 0-1 (0-5/HPF) Ur Epithelial Cells RARE (NONE-FEW) Urine Bacteria RARE (NEGATIVE) 08/09/16 08/09/16 Range/Units 09:13 09:13 WBC 10.55 (4.0-11.0) K/uL RBC 5.02 (4.50-5.90) M/uL Hgb 15.6 (13.0-17.0) g/dL Hct 45.6 (38.0-50.0) % MCV 90.8 (80.0-98.0) fL MCH 31.1 (27.0-32.0) pg MCHC 34.2 (31.0-37.0) g/dL RDW Std Deviation 48.1 (28.0-62.0) fl RDW Coeff of [place] 14 (11.0-15.0) % Plt Count 217 (150-400) K/uL MPV 10.00 (7.40-12.00) fL Neut % (Auto) 70.6 (48.0-80.0) % Lymph % (Auto) 19.0 (16.0-40.0) % [place] % (Auto) 8.6 (0.0-15.0) % Eos % (Auto) 1.6 (0.0-7.0) % Baso % (Auto) 0.2 (0.0-1.5) % Neut # (Auto) 7.5 H (1.4-5.7) K/uL Lymph # (Auto) 2.0 (0.6-2.4) K/uL [place] # (Auto) 0.9 H (0.0-0.8) K/uL Eos # (Auto) 0.2 (0.0-0.7) K/uL Baso # (Auto) 0.0 (0.0-0.1) K/uL Nucleated RBC % 0.0 /100WBC Nucleated RBCs # 0 K/uL Sodium 140 (136-146) mmol/L Potassium 4.2 (3.5-5.1) mmol/L Chloride 107 (98-110) mmol/L Carbon Dioxide 25 (21-31) mmol/L BUN 12 (6.0-23.0) mg/dL Creatinine 0.9 (0.6-1.5) mg/dL Est Cr Clr Drug Dosing 108.71 mL/min Estimated GFR (MDRD) > 60.0 ml/min Glucose 119 H (60-110) mg/dL Calcium 8.9 (8.8-10.8) mg/dL Total Bilirubin 0.6 (0.1-1.5) mg/dL AST 25 (5-40) IU/L ALT 33 (8-54) IU/L Alkaline Phosphatase 78 (40-150) Troponin I (0.0-0.29) NG/ML C-Reactive Protein 0.19 (0.0-0.5) mg/dL Total Protein 6.5 (6.0-8.0) g/dL Albumin 3.8 (3.5-5.0) g/dL Globulin 2.7 (2.0-3.5) g/dL Albumin/Globulin Ratio 1.4 (1.3-2.8) Amylase 65 (10-90) U/L Lipase 37 (7-80) U/L Urine Color Urine Appearance Urine pH (5.0-8.0) Ur Specific [place] (1.001-1.035) Urine Protein (NEGATIVE) mg/dL Urine Glucose (UA) (NEGATIVE) mg/dL Urine Ketones (NEGATIVE) mg/dL Urine Occult Blood (NEGATIVE) Urine Nitrite (NEGATIVE) Urine Bilirubin (NEGATIVE) Urine Urobilinogen (<2.0) EU/dL Ur Leukocyte Esterase (NEGATIVE) Urine RBC (0-2/HPF) Urine WBC (0-5/HPF) Ur Epithelial Cells (NONE-FEW) Urine Bacteria (NEGATIVE) Med Orders - Current: Current Medications Acetaminophen (Tylenol) 650 mg PO Q4H PRN PRN Reason: Pain (Mild 1-3)/fever Docusate Sodium (Colace) 100 mg PO BID PRN PRN Reason: Constipation Ondansetron HCl (Zofran Odt) 8 mg PO Q4H PRN PRN Reason: nausea, able to take PO Oxycodone HCl (Oxycodone) 5 mg PO Q4H PRN PRN Reason: Pain (moderate 4-6) Sodium Chloride (Saline Flush) 10 ml FLUSH ASDIRECTED PRN PRN Reason: Keep Vein Open Sodium Chloride (Saline Flush) 2.5 ml FLUSH ASDIRECTED PRN PRN Reason: Keep Vein Open Temazepam (Restoril) 15 mg PO BEDTIME PRN PRN Reason: Sleep Discontinued Medications Aspirin (Aspirin) 324 mg PO ONETIME ONE Stop: 08/08/16 11:18 Last Admin: 08/08/16 11:23 Dose: 324 mg Aspirin (Aspirin) Confirm Administered Dose 81 mg .ROUTE .STK-MED ONE Stop: 08/08/16 11:32 Last Admin: 08/08/16 11:36 Dose: Not Given Al Hydroxide/Mg Hydroxide 15 (ml/ Lidocaine HCl 5 ml) 0 ml PO ONETIME ONE Stop: 08/08/16 19:20 Last Admin: 08/08/16 20:12 Dose: 1 each Sodium Chloride (Normal Saline) 1,000 mls @ 125 mls/hr IV STAT LIDIA Last Admin: 08/08/16 11:24 Dose: 125 mls/hr Nitroglycerin (Nitrostat) 0.4 mg SL Q5M PRN PRN Reason: Chest Pain Stop: 08/08/16 11:28 Last Admin: 08/08/16 11:24 Dose: 0.4 mg Nitroglycerin (Nitro-Bid 2%) 1 gm TOP ONETIME ONE Stop: 08/08/16 13:20 Last Admin: 08/08/16 13:23 Dose: 1 gm *Q Meaningful Use (DIS) - VTE *Q VTE Criteria *Q: - Stroke *Q Stroke Criteria *Q: - AMI *Q AMI Criteria *Q: <Jamey Castaneda - Last Filed: 08/11/16 15:53> Discharge Summary - Hospital Course Free Text/Narrative:: I was present with the resident during history and examination. I discussed the case with the resident and agree with the findings and plan as documented in the residents note. - Discharge Diagnosis/Problem(s) (1) Chest pain SNOMED Code(s): 19506310 ICD Code: R07.9 - CHEST PAIN, UNSPECIFIED Status: Acute Qualifiers: Chest pain type: other chest pain Qualified Code(s): R07.89 - Other chest pain; R07.8 - Other chest pain - Patient Data Vitals - Most Recent: Last Vital Signs Temp 36.4 C 08/09/16 11:53 Pulse 73 08/09/16 11:53 Resp 22 H 08/09/16 11:53 BP 119/76 08/09/16 11:53 Pulse Ox 96 08/09/16 11:53 Med Orders - Current: Current Medications Discontinued Medications Acetaminophen (Tylenol) 650 mg PO Q4H PRN PRN Reason: Pain (Mild 1-3)/fever Aspirin (Aspirin) 324 mg PO ONETIME ONE Stop: 08/08/16 11:18 Last Admin: 08/08/16 11:23 Dose: 324 mg Aspirin (Aspirin) Confirm Administered Dose 81 mg .ROUTE .STK-MED ONE Stop: 08/08/16 11:32 Last Admin: 08/08/16 11:36 Dose: Not Given Al Hydroxide/Mg Hydroxide 15 (ml/ Lidocaine HCl 5 ml) 0 ml PO ONETIME ONE Stop: 08/08/16 19:20 Last Admin: 08/08/16 20:12 Dose: 1 each Docusate Sodium (Colace) 100 mg PO BID PRN PRN Reason: Constipation Sodium Chloride (Normal Saline) 1,000 mls @ 125 mls/hr IV STAT LIDIA Last Admin: 08/08/16 11:24 Dose: 125 mls/hr Nitroglycerin (Nitrostat) 0.4 mg SL Q5M PRN PRN Reason: Chest Pain Stop: 08/08/16 11:28 Last Admin: 08/08/16 11:24 Dose: 0.4 mg Nitroglycerin (Nitro-Bid 2%) 1 gm TOP ONETIME ONE Stop: 08/08/16 13:20 Last Admin: 08/08/16 13:23 Dose: 1 gm Ondansetron HCl (Zofran Odt) 8 mg PO Q4H PRN PRN Reason: nausea, able to take PO Oxycodone HCl (Oxycodone) 5 mg PO Q4H PRN PRN Reason: Pain (moderate 4-6) Sodium Chloride (Saline Flush) 10 ml FLUSH ASDIRECTED PRN PRN Reason: Keep Vein Open Sodium Chloride (Saline Flush) 2.5 ml FLUSH ASDIRECTED PRN PRN Reason: Keep Vein Open Temazepam (Restoril) 15 mg PO BEDTIME PRN PRN Reason: Sleep *Q Meaningful Use (DIS) - VTE *Q VTE Criteria *Q: - Stroke *Q Stroke Criteria *Q: - AMI *Q AMI Criteria *Q:
== END 2016-08-09 13:05 | disposition home or self-care (01) ==
LOC: MW.ED 11:14 → MW.MS 13:26 → UNDOADMOB 15:22
PROVIDERS: ADMIT Internal Medicine; ATTEND Internal Medicine
DX: R07.89 Other chest pain (principal); R10.13 Epigastric pain; Z72.89 Other problems related to lifestyle; J01.90 Acute sinusitis, unspecified; F17.210 Nicotine dependence, cigarettes, uncomplicated; Z90.49 Acquired absence of other specified parts of digestive tract; Z98.890 Other specified postprocedural states
CPT/HCPCS: 36415; 71010; 74176; 80053; 80305; 81001; 82150; 83690; 83880; 84484; 85025; 85610; 86140; 93005; 99285; A9270; G0378; J7040; 96360; 96361